=== PATIENT | female | born 1995 | race Caucasian/White ===

== ENCOUNTER 2018-12-21 16:15 | Emergency (ER) | payer OTHER ==
[~2018-12-21] VITALS: Ht 160 cm; Wt 87.5 kg
[~2018-12-21 16:15] MED LIST: PRENATA CHEWAB1 EACH; ZANTAC 7575 MG
[2018-12-21] MEDS ORDERED: METOCLOPRAMIDE10 MG (16:41)
[2018-12-21] MEDS ORDERED: DOLOGESIC 500-1 EACH (16:42)
[2018-12-21] MEDS ORDERED: BIOTIN1 M1 (16:43)
== END 2018-12-21 23:55 | disposition home or self-care (01) ==
LOC: ER 16:15
DX: K80.20 Calculus of gallbladder without cholecystitis without obstruction (principal); K76.0 Fatty (change of) liver, not elsewhere classified; R16.0 Hepatomegaly, not elsewhere classified

== ENCOUNTER 2018-12-28 11:07 | Outpatient (CLI) | payer OTHER ==
[~2018-12-28 11:07] MED LIST changes: +BIOTIN1 M1; +DOLOGESIC 500-1 EACH; +METOCLOPRAMIDE10 MG
== END 2018-12-28 11:30 | disposition home or self-care (01) ==
LOC: LAB 11:07
DX: K80.10 Calculus of gallbladder with chronic cholecystitis without obstruction (principal); Z01.810 Encounter for preprocedural cardiovascular examination; Z01.811 Encounter for preprocedural respiratory examination; Z01.812 Encounter for preprocedural laboratory examination

== ENCOUNTER 2019-01-10 04:28 | Day surgery (SDC) | payer OTHER | END 2019-01-10 12:15 | disposition home or self-care (01) | LOC: CIR.AMB 04:28 | DX: K80.10 Calculus of gallbladder with chronic cholecystitis without obstruction (principal) ==